=== PATIENT | female | born 1935 | race Caucasian/White ===

== ENCOUNTER 2017-03-02 11:15 | Emergency (ER) | payer OTHER ==
[2017-03-02 11:39] VITALS: BP 150/75; PULSE 71; TEMP 98.1; BMI 20.5
--- NOTE | 2017-03-02 13:14 | PDOC ---
History of Present Illness - General Chief Complaint: RX Refill Stated Complaint: RX REFILL Time Seen by Provider: 03/02/17 12:30 - History of Present Illness Initial Comments: 03/02/17 13:10 CHIEF COMPLAINT: rx refill HISTORY OF PRESENT ILLNESS: 82 yo F with hx of hypothyroidism, HTN, HLD, peripheral neuropathy presents to [facility] for medication refill. Patient reports that she has been displaced from [place] and is running out of her thyroid medication. PAST MEDICAL HISTORY: Denies past medical history FAMILY HISTORY: Denies SOCIAL HISTORY: Denies tobacco, alcohol, illicit drug use. SURGICAL HISTORY: Denies ALLERGIES: No known drug allergies REVIEW OF SYSTEMS General/Constitutional: Denies fever or chills. Denies weakness, weight change. HEENT: Denies change in vision. Denies ear pain or discharge. Denies sore throat. Cardiovascular: Denies chest pain or shortness of breath. Respiratory: Denies cough, wheezing, or hemoptysis. Gastrointestinal: Denies nausea, vomiting, diarrhea or constipation. Denies rectal bleeding. Genitourinary: Denies dysuria, frequency, or change in urination. Musculoskeletal: Denies joint or muscle swelling or pain. Denies neck or back pain. Skin and breasts: Denies rash or easy bruising. PHYSICAL EXAM General Appearance: Well-appearing, appropriately dressed. No apparent distress. HEENT: EOMI, PERRLA, normal ENT inspection, normal voice, TMs normal, pharynx normal. No conjunctival pallor. No photophobia, scleral icterus. Neck: Supple. Trachea midline. No tenderness, rigidity, carotid bruit, stridor , lymphadenopathy, or thyromegaly. Respiratory/Chest: Lungs CTAB. No shortness of breath, chest tenderness, respiratory distress, accessory muscle use. No crackles, rales, rhonchi, stridor , wheezing, dullness Cardiovascular: RRR. S1, S2. No JVD, murmur, bradycardia, tachycardia. Vascular Pulses: Dorsalis-Pedis (R): 2+, Dorsalis-Pedis (L): 2+ Gastrointestinal/Abdominal: Normal bowel sounds. Abdomen soft, non-distended. No tenderness or rebound tenderness. No organomegaly, pulsatile mass, guarding , hernia, hepatomegaly, splenomegaly. Lymphatic: No adenopathy, tenderness. Musculoskeletal/Extremities: Normal inspection. FROM of all extremities, normal capillary refill. Pelvis Stable. No CVA tenderness. No tenderness to extremities, pedal edema, swelling, erythema or deformity. Integumentary: Appropriate color, dry, warm. No cyanosis, erythema, jaundice or rash Neurologic: vessel manager II-XII intact. Fully oriented, alert. Appropriate mood/affect. Motor strength 5/5. No appreciable EOM palsy, facial droop or sensory deficit. Past History - Past Medical History Allergies/Adverse Reactions: Allergies Allergy/AdvReac Type Severity Reaction Status Date / Time No Known Allergies Allergy Verified 03/02/17 11:20 Home Medications: Ambulatory Orders Levothyroxine [Synthroid -] 25 mcg PO DAILY #14 tablet 03/02/17 Anemia: Yes HTN: Yes Thyroid Disease: Yes Other medical history: Arthritis - Surgical History Abdominal Surgery: Yes (hernia repair) - Suicide/Smoking/Psychosocial Hx Smoking History: Never smoked Hx Alcohol Use: No Drug/Substance Use Hx: No Substance Use Type: None *Physical Exam - Vital Signs Last Vital Signs Temp Pulse Resp BP Pulse Ox 98.1 F 71 18 150/75 98 03/02/17 11:18 03/02/17 11:18 03/02/17 11:18 03/02/17 11:18 03/02/17 11:18 *DC/Admit/Observation/Transfer Diagnosis at time of Disposition: Medication refill - Discharge Dispostion Disposition: HOME Condition at time of disposition: Good Admit: No - Prescriptions Prescriptions: Levothyroxine [Synthroid -] 25 mcg PO DAILY #14 tablet - Referrals Referrals: [facility] [Provider Group] Cuauhtemoc Soto MD [Staff Physician] - - Patient Instructions Additional Instructions: As discussed, you need to follow up with the clinic to establish care. Please call [facility] (referral provided) to make an appointment. You will need to make an appointment with a primary care doctor, engineer soils, and neurologist to start with. If you develop ANY concerning symptoms, such as chest pain, shortness of breath, fever, vomiting, diarrhea, please come to the ER immediately.
== END 2017-03-02 13:24 | disposition home or self-care (01) ==
LOC: JERFT 11:15
DX: E03.9 Hypothyroidism, unspecified (principal); I10 Essential (primary) hypertension; E78.00 Pure hypercholesterolemia, unspecified; D64.9 Anemia, unspecified; M12.9 Arthropathy, unspecified
CPT/HCPCS: 99281-25